=== PATIENT | female | born 1945 | race Caucasian/White ===

== ENCOUNTER 2016-11-28 18:45 | Emergency (ER) | payer MEDICARE, OTHER ==
[~2016-11-28] VITALS: Ht 154.9 cm; Wt 54.1 kg
[2016-11-28] MEDS ORDERED: LEVO88TA3 PO (19:26)
[2016-11-28] MEDS ORDERED: VAGI10TA VA (19:26)
[2016-11-28] MEDS ORDERED: LEVAINH INH (19:26)
[2016-11-28] MEDS ORDERED: HYDR25TAB PO (19:26)
[2016-11-28] MEDS ORDERED: ADV250INH INH (19:26)
[2016-11-28] MEDS ORDERED: AMLO10TA2 (19:26)
[2016-11-28] MEDS ORDERED: LEVOTAB10 PO (19:26)
[2016-11-28 20:11] LABS: VENOUS BASE EXCESS 5.2 (-2.0-2.0); VENOUS O2 SATURATION 87.7 % (60.0-80.0); VENOUS STANDARD HCO3 28.9 MEQ/L; VENOUS TOTAL CO2 31.7 MEQ/L (24.0-28.0)
[2016-11-28 20:17] LABS: BASO % 0.4 % (0.0-1.0); EOS # 0.1 K/mm3 (0.0-0.50); EOS % 1.3 % (0.0-3.0); LARGE UNSTAINED CELL # 0.2 K/mm3 (0.0-0.4); LARGE UNSTAINED CELL % 1.6 % (0.0-4.0); LYMPH # 2.3 K/mm3 (1.5-4.5); LYMPH % 19.9 % (24.0-44.0); MEAN CORPUSCULAR HEMOGLOBIN 31.6 pg (27.0-33.0); MEAN CORPUSCULAR HGB CONC 34.6 g/dl (32.0-36.5); MEAN CORPUSCULAR VOLUME 91.3 fl (80.0-96.0); MONO # 0.9 K/mm3 (0.0-0.8); MONO % 8.2 % (0.0-5.0); NEUTROPHILS # 7.4 K/mm3 (1.8-7.7); NEUTROPHILS % 68.6 % (36.0-66.0); PLATELET COUNT, AUTOMATED 325 k/mm3 (150-450); RED CELL DISTRIBUTION WIDTH 12.1 % (11.5-14.5); WHITE BLOOD COUNT 10.8 K/mm3 (4.0-10.0)
[2016-11-28 20:43] LABS: ANION GAP 5 MEQ/L (8-16); BLOOD UREA NITROGEN 16 MG/DL (7-18); CALCIUM LEVEL 9.4 MG/DL (8.8-10.2); CARBON DIOXIDE LEVEL 31 MEQ/L (21-32); CHLORIDE LEVEL 92 MEQ/L (98-107); CREATININE FOR GFR 0.66 MG/DL (0.55-1.02); FREE T4 1.52 NG/DL (0.76-1.46); GLOMERULAR FILTRATION RATE > 60.0 (>39); GLUCOSE, FASTING 114 MG/DL (83-110); SODIUM LEVEL 128 MEQ/L (136-145)
[2016-11-28] MEDS ORDERED: POTASSIUM CHLORIDE 10 MEQ SR TABLET PO ONE (22:30)
[2016-11-28 23:26] LABS: MAGNESIUM LEVEL 1.6 MG/DL (1.8-2.4)
[2016-11-28] MEDS ORDERED: MAG SULF 1GM/100ML (MAG RUN) 1 GM in APPROPRIATE DILUENT 1 EA IV ONE (23:45)
[2016-11-29 03:29] VITALS: BP 131/63
--- NOTE | 2016-11-29 07:52 | REP ---
PA and lateral chest: Comparison is the chest CT dated 02/28/2016. There are no focal infiltrates or pleural effusions. There are no nodules or masses. The left lower lobe lung nodules identified on the comparison CT are not visible on this PA and lateral plain film study, a CT be more sensitive. Lung silver are hyperinflated and there are bulla throughout the lung silver bilaterally, most predominant in the upper lobes. This is unchanged from the comparison CT. Cardiac size is normal. The central young are enlarged compatible with pulmonary hypertension. The mediastinum and bony thorax are unremarkable. Impression: No acute cardiopulmonary findings. Bullous emphysema and probable pulmonary hypertension. There are left lower lobe lung nodules on the comparison CT. These are not visible on the plain film study. Signed by Wu Villa MD 11/29/2016 07:44 A
--- NOTE | 2016-11-29 08:48 | ECGEPIP ---
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
--- NOTE | 2016-11-29 08:51 | ECGEPIP ---
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
--- NOTE | 2016-11-29 12:12 | ED PDOC ---
Post-Departure Follow-Up dr raya faxed formal report of cxr for fu Celso Stewart MD Nov 29, 2016 12:12
== END 2016-11-29 03:30 | disposition home or self-care (01) ==
LOC: M ED 18:45
DX: R07.89 Other chest pain (principal); R00.2 Palpitations; R06.02 Shortness of breath; E87.6 Hypokalemia; E83.42 Hypomagnesemia; R00.0 Tachycardia, unspecified; I10 Essential (primary) hypertension; J44.9 Chronic obstructive pulmonary disease, unspecified; E03.9 Hypothyroidism, unspecified; F41.9 Anxiety disorder, unspecified; Z79.899 Other long term (current) drug therapy; Z79.51 Long term (current) use of inhaled steroids; Z88.8 Allergy status to other drugs, medicaments and biological substances; Z87.891 Personal history of nicotine dependence
CPT/HCPCS: 36415; 71020; 80048; 82550; 82553; 82803; 83690; 83735; 83880; 84439; 84443; 84484; 85025; 85379; 93005; 93041; 96365; 96366; 99285; J3475

== ENCOUNTER → 2016-11-28 | Outpatient (CLI) | payer MEDICARE, OTHER ==
[~2016-11-28] MED LIST: ADV250INH INH; AMLO10TA2; HYDR25TAB PO; LEVAINH INH; LEVO88TA3 PO; LEVOTAB10 PO; VAGI10TA VA
[2016-11-28 20:20] LABS: FREE T4 1.53 NG/DL (0.76-1.46)
== END ==
LOC: M WUC 18:12
PROVIDERS: ATTEND Physician Assistant Medical
DX: E03.9 Hypothyroidism, unspecified (principal); R00.2 Palpitations; R00.0 Tachycardia, unspecified

== ENCOUNTER → 2017-01-16 | Outpatient (CLI) | payer MEDICARE, OTHER ==
[2017-01-16 14:18] LABS: CONTROL LINE HPYORI INT CTR LINE PRESENT
== END ==
LOC: M SMT 11:09
PROVIDERS: ATTEND Internal Medicine Gastroenterology
DX: K21.9 Gastro-esophageal reflux disease without esophagitis (principal)

== ENCOUNTER → 2018-03-25 | Outpatient (CLI) | payer MEDICARE, OTHER | LOC: M RAD 10:13 | DX: Z12.12 Encounter for screening for malignant neoplasm of rectum (principal); J44.9 Chronic obstructive pulmonary disease, unspecified; R91.8 Other nonspecific abnormal finding of lung field; Z87.891 Personal history of nicotine dependence | CPT/HCPCS: G0297 ==

== ENCOUNTER → 2019-03-30 | Outpatient (CLI) | payer MEDICARE, OTHER ==
[~2019-03-30] MED LIST changes: -AMLO10TA2; +AMLO10TA5
--- NOTE | 2019-03-30 12:21 | REP ---
LOW-DOSE LUNG SCREENING CT: Low dose lung screening CT exam is accomplished without the use of intravenous contrast and compared to prior studies 03/25/2018 and 02/18/2017. Once again, there are multiple subcentimeter nodular densities mainly on the right side, which are stable. Emphysematous changes are seen in the upper lobes. There is scattered interstitial fibrotic scarring. Bullous change is seen in the right posterior costophrenic sulcus. There is a new irregular parenchymal opacity in the left lower lobe inferomedially measuring approximately 13 x 8 mm. I suspect this represents focal inflammatory infiltrate. However, early neoplasm cannot totally be excluded. IMPRESSION: Lung RADS category 4A. New irregular somewhat nodular opacity in the left lower lobe measuring 13 x 8 mm. This may represent inflammatory focus but early neoplasm is not excluded. Recommend followup CT of the chest in 3 months with sagittal and coronal reconstruction images. Electronically Signed by Wu Schilling MD 03/30/2019 04:22 P
== END ==
LOC: M RAD 09:22
PROVIDERS: ATTEND Internal Medicine Pulmonary Disease
DX: Z12.2 Encounter for screening for malignant neoplasm of respiratory organs (principal); Z87.891 Personal history of nicotine dependence; R91.8 Other nonspecific abnormal finding of lung field

== ENCOUNTER → 2019-12-01 | Outpatient (CLI) | payer MEDICARE, OTHER ==
[~2019-12-01] MED LIST changes: -AMLO10TA5; +AMLO1TAB25
--- NOTE | 2020-01-07 09:55 | REP ---
CT CHEST WITHOUT CONTRAST HISTORY: Chronic obstructive pulmonary disease. COMPARISON: Made with prior CT studies of the chest the most recent of which is from 03/30/2019 and the most remote of which is from 06/24/2012. CT FINDINGS: There are multiple stable benign small subcentimeter pulmonary nodules scattered bilaterally, which are unchanged from the 2013 prior study. The recently identified new irregular density in the left lower lobe peribronchial vascular distribution is again seen, but this is less prominent in size than on the prior study measuring 3 mm in short axis dimension, previously 8 mm x 5 mm anteroposterior, previously 13. This is consistent with resolving inflammatory change. There is advanced diffuse emphysema severe in degree. No new pulmonary mass, infiltrate, or new atelectasis is seen. No pleural or pericardial effusion is seen. Stable normal sized mediastinal lymph nodes are noted. IMPRESSION: Advanced chronic obstructive pulmonary disease (COPD) changes. Improvement noted in the recently identified irregular nodular density in the left lower lobe. Otherwise, stable findings. MTDD
== END ==
LOC: M RAD 10:13
PROVIDERS: ATTEND Internal Medicine Pulmonary Disease
DX: J44.9 Chronic obstructive pulmonary disease, unspecified (principal)

== ENCOUNTER → 2021-03-07 | Outpatient (REF) | payer MEDICARE, OTHER ==
[~2021-03-07] MED LIST changes: +HYDR-3490 PO; -HYDR25TAB PO
[2021-03-07 18:13] LABS: APPEARANCE, URINE CLEAR (CLEAR); BACTERIA, URINE AUTO NEGATIVE (NEGATIVE); BILIRUBIN, URINE AUTO NEGATIVE (NEGATIVE); BLOOD, URINE BLOOD NEGATIVE (NEGATIVE); COLOR, URINE STRAW (YELLOW); GLUCOSE, URINE (UA) AUTO NEGATIVE (NEGATIVE); KETONE, URINE AUTO NEGATIVE (NEGATIVE); LEUKOCYTE ESTERASE, URINE AUTO NEGATIVE (NEGATIVE); NITRITE, URINE AUTO NEGATIVE (NEGATIVE); PROTEIN, URINE AUTO NEGATIVE (NEGATIVE); RBC, URINE AUTO 1 /HPF (0-3); SPECIFIC GRAVITY URINE AUTO 1.006 (1.002-1.035); SQUAMOUS EPITHELIAL CELL UR AU 1 /HPF (0-6); UROBILINOGEN, URINE AUTO 0.2 mg/dL (0.0-2.0); WBC, URINE AUTO 1 /HPF (0-3)
== END ==
LOC: M LAB REF 16:56
PROVIDERS: ATTEND Nurse Practitioner Family
DX: E79.0 Hyperuricemia without signs of inflammatory arthritis and tophaceous disease (principal)

== ENCOUNTER → 2021-03-16 | Outpatient (CLI) | payer MEDICARE, OTHER ==
--- NOTE | 2021-03-16 12:35 | REP ---
INDICATION: COPD COMPARISON: 12/01/2019 the latest prior also without contrast TECHNIQUE: Standard helical technique without contrast FINDINGS: There is no significant change in appearance of the mediastinum or pulmonary young. There are no pleural or pericardial effusions. There is no significant change in appearance of the imaged upper abdomen or imaged osseous structures. Evaluation of the lung silver again shows lung field hyperexpansion and rather marked emphysematous changes with parenchymal bulla and pleural blebs status quo. There is biapical pleuroparenchymal scarring which appears stable. There are 3 nodules in the left lower lobe which are stable. There is a curvilinear density in the left lower lobe which is also stable. There is a small triangular-shaped density in the right middle lobe which is unchanged. There is an additional right middle lobe density which is somewhat irregular but is stable. No new abnormal nodules, masses, or opacities have developed. IMPRESSION: Stable chronic changes as described above. <Electronically signed by Marc Fields > 03/16/21 [id number]
== END ==
LOC: M PLAIMG 10:26
PROVIDERS: ATTEND Internal Medicine Pulmonary Disease
DX: R91.8 Other nonspecific abnormal finding of lung field (principal); J43.9 Emphysema, unspecified

== ENCOUNTER → 2021-11-30 | Outpatient (CLI) | payer MEDICARE, OTHER | LOC: M WHC 13:07 | PROVIDERS: ATTEND Nurse Practitioner Family | DX: H53.123 Transient visual loss, bilateral (principal) ==

== ENCOUNTER → 2024-03-01 | Outpatient (REF) | payer MEDICARE, OTHER ==
[~2024-03-01] MED LIST changes: +LEVA15HF2 INH; -LEVAINH INH
[2024-03-01 15:15] LABS: BASO # 0.1 10^3/uL (0.0-0.2); BASO % 0.5 % (0.0-1.0); EOS % 0.4 % (0.0-3.0); HEMATOCRIT 29.1 % (36.0-47.0); HEMOGLOBIN 9.3 g/dl (12.0-15.5); LYMPH # 0.8 10^3/uL (1.5-5.0); LYMPH % 6.9 % (24.0-44.0); MEAN CORPUSCULAR HEMOGLOBIN 27.6 pg (27.0-33.0); MEAN CORPUSCULAR VOLUME 86.4 fl (80.0-96.0); MONO # 1.3 10^3/uL (0.0-0.8); MONO % 11.6 % (2.0-8.0); NEUTROPHILS % 80.2 % (36.0-66.0); PLATELET COUNT, AUTOMATED 495 10^3/uL (150-450); RED BLOOD COUNT 3.37 10^6/uL (4.00-5.40); WHITE BLOOD COUNT 11.2 10^3/uL (4.0-10.0)
[2024-03-01 15:42] LABS: BLOOD UREA NITROGEN 14 MG/DL (9-23); CALCIUM LEVEL 8.8 MG/DL (8.3-10.6); CARBON DIOXIDE LEVEL 33 MMOL/L (20-31); CHLORIDE LEVEL 91 MMOL/L (98-107); CREATININE FOR GFR 0.46 MG/DL (0.55-1.30); GLOMERULAR FILTRATION RATE > 60.0 (>32); GLUCOSE, FASTING 95 MG/DL (74-106); MAGNESIUM LEVEL 1.4 MG/DL (1.8-2.4); POTASSIUM SERUM 3.4 MMOL/L (3.5-5.1); SODIUM LEVEL 129 MMOL/L (136-145)
[2024-03-01 15:45] LABS: FREE T4 1.64 NG/DL (0.89-1.76)
== END ==
LOC: M LAB REF 14:40
PROVIDERS: ATTEND Nurse Practitioner Family
DX: E03.9 Hypothyroidism, unspecified (principal); E53.1 Pyridoxine deficiency

== ENCOUNTER → 2025-01-27 | Outpatient (REF) | payer MEDICARE, OTHER ==
[~2025-01-27] MED LIST changes: -ADV250INH INH; +ADVA1AER9 INH
== END ==
LOC: M LAB REF 21:10
PROVIDERS: ATTEND Internal Medicine Pulmonary Disease
DX: R91.8 Other nonspecific abnormal finding of lung field (principal)

== ENCOUNTER → 2025-02-15 | Outpatient (CLI) | payer MEDICARE, OTHER | LOC: M PLAIMG 14:36 | PROVIDERS: ATTEND Internal Medicine Pulmonary Disease | DX: J85.1 Abscess of lung with pneumonia (principal); J44.9 Chronic obstructive pulmonary disease, unspecified; R91.8 Other nonspecific abnormal finding of lung field ==

== ENCOUNTER → 2025-02-16 | Outpatient (REF) | payer MEDICARE, OTHER ==
[2025-02-16 14:25] LABS: BASO # 0.1 10^3/uL (0.0-0.2); BASO % 0.8 % (0.0-1.0); EOS # 0.1 10^3/uL (0.0-0.5); EOS % 1.4 % (0.0-3.0); LYMPH # 1.3 10^3/uL (1.5-5.0); LYMPH % 18.2 % (24.0-44.0); MONO # 0.9 10^3/uL (0.0-0.8); MONO % 12.4 % (2.0-8.0); NEUTROPHILS # 4.8 10^3/uL (1.5-8.5); NEUTROPHILS % 66.8 % (36.0-66.0); PLATELET COUNT, AUTOMATED 372 10^3/uL (150-450)
[2025-02-16 15:18] LABS: PLATELET ESTIMATE NORMAL (NORMAL)
== END ==
LOC: M LAB REF 13:08
PROVIDERS: ATTEND Nurse Practitioner Family
DX: D64.9 Anemia, unspecified (principal)

== ENCOUNTER → 2025-03-02 | Outpatient (CLI) | payer MEDICARE, OTHER ==
[2025-03-02 17:42] LABS: BASO # 0.0 10^3/uL (0.0-0.2); BASO % 0.4 % (0.0-1.0); EOS # 0.1 10^3/uL (0.0-0.5); EOS % 0.6 % (0.0-3.0); LYMPH # 1.5 10^3/uL (1.5-5.0); LYMPH % 16.6 % (24.0-44.0); MONO # 0.9 10^3/uL (0.0-0.8); MONO % 9.5 % (2.0-8.0); NEUTROPHILS # 6.5 10^3/uL (1.5-8.5); NEUTROPHILS % 72.7 % (36.0-66.0); PLATELET COUNT, AUTOMATED 489 10^3/uL (150-450)
[2025-03-02 18:02] LABS: ALT/SGPT 12 U/L (7.0-40); AST/SGOT 21 U/L (<34); CALCIUM LEVEL 8.6 MG/DL (8.3-10.6); CARBON DIOXIDE LEVEL 34 MMOL/L (20-31); CHLORIDE LEVEL 88 MMOL/L (98-107); CREATININE FOR GFR 0.44 MG/DL (0.55-1.30); GLOMERULAR FILTRATION RATE > 90.0 (>32); IRON (FE) 18 UG/DL (50-170); LDH LACTATE DEHYDROGENASE 127 U/L (120-246); PERCENT SATURATION 5.2 % (13.2-45.0); POTASSIUM SERUM 3.3 MMOL/L (3.5-5.1); SODIUM LEVEL 132 MMOL/L (136-145)
[2025-03-02 18:05] LABS: FREE T4 1.38 NG/DL (0.89-1.76); VITAMIN B12 LEVEL 261 PG/ML (211-911)
== END ==
LOC: M PLALAB 16:18
PROVIDERS: ATTEND Nurse Practitioner Family
DX: I10 Essential (primary) hypertension (principal); E03.9 Hypothyroidism, unspecified; D64.9 Anemia, unspecified